=== PATIENT | female | born 1995 | race Caucasian/White ===

== ENCOUNTER 2017-11-29 17:44 | Emergency (ER) | payer BC ==
--- NOTE | 2017-11-29 19:16 | RAD ---
Indication: Cough, fever. 2 views of the chest including dual energy PA views demonstrate no mediastinal shift. Heart is of normal size and configuration. Lung dejesus appear clear. When compared to previous exam of September 27, 2015 right lower lobe pneumonia is no longer present. IMPRESSION: NO ACTIVE CARDIOPULMONARY DISEASE IS NOTED.
--- NOTE | 2017-11-29 19:38 | UC ---
Antonio Allen Tecjoon, scribed for Miko Richter MD on 11/29/17 at 1818 . General HPI - HPI Summary HPI Summary: This patient is a 21 year old female presenting to [facility] [place] accompanied by male learning support teacher with a chief complaint of pneumonia-like symptoms since 2-3 days ago. Patient states that she has been feeling weak and has chest pressure. The illness was sudden onset. The pain is described as achy. The pain is rated 7 /10 in severity. Symptoms aggravated by nothing. Symptoms alleviated by nothing. Patient additionally reports headache, weakness, fatigue, sore throat, nausea, subjective fever, chills, productive cough. Patient denies wheezing. - History of Current Complaint Chief Complaint: UCGeneralIllness Stated Complaint: COLD Time Seen by Provider: 11/29/17 18:04 Hx Obtained From: Patient Hx Last Menstrual Period: on control Onset/Duration: Sudden Onset, Lasting Days - 2-3, Still Present Timing: Constant Current Severity: Moderate Pain Intensity: 7 - /10 Pain Location at: chest Character: pressure Aggravating: nothing Alleviating: nothing Associated Signs & Symptoms: Positive: Other. Negative: Wheezing - Allergy/Home Medications Allergies/Adverse Reactions: Allergies Allergy/AdvReac Type Severity Reaction Status Date / Time Penicillins [PCN] Allergy Severe Hives Verified 03/21/16 18:42 Home Medications: Home Medications Acetaminophen [Tylenol] 650 11/29/17 [History] Pseudoephedrine-Guaifenesin [Mucinex D 60-600 mg] 11/29/17 [History] PMH/Surg Hx/FS Hx/Imm Hx Previously Healthy: Yes Endocrine History: Other Other Endocrine History: negative: diabetes Cardiovascular History: Other Other Cardiovascular History: negative: hypertension - Surgical History Surgical History: Yes Surgery Procedure, Year, and Place: TONISILLECTOMY. CHOLECYSTECTOMY - Family History Known Family History: Positive: Hypertension - Social History Occupation: Student Alcohol Use: None Substance Use Type: None Smoking Status (MU): Never Smoked Tobacco Review of Systems Constitutional: Fever, Chills, Fatigue ENT: Sore Throat Respiratory: Negative - wheezing, Cough Gastrointestinal: Nausea Neurological: Headache, Weakness All Other Systems Reviewed And Are Negative: Yes Physical Exam Triage Information Reviewed: Yes Vital Signs: Initial Vital Signs Temp 98.0 F 11/29/17 17:50 Pulse 86 11/29/17 17:50 Resp 16 11/29/17 17:50 BP 141/81 11/29/17 17:50 Pulse Ox 100 11/29/17 17:50 - Additional Comments General: Mildly ill appearing, no pain distress Skin: warm, color reflects adequate perfusion, dry Head: normal Eyes: EOMI, GASPER ENT: Positive rhinorrhea, Posterior pharynx erythematous. Positive anterior cervical lymphadenopathy. Neck: supple, nontender Respiratory: CTA, breath sounds present Cardiovascular: RRR Abdomen: soft, nontender Bowel: present Musculoskeletal: normal, strength/ROM intact Neurological: normal, sensory/motor intact, A&O x3 Psychological: affect/mood appropriate Diagnostics - Radiology CXR Xray Interpretation: No Acute Changes - IMPRESSION: NO ACTIVE CARDIOPULMONARY DISEASE IS NOTED. ED physician has reviewed this radiology report. Radiology Interpretation Completed By: Radiologist Course/Dx - Course Course Of Treatment: BP noted and advised to follow up with PCP. REVIEWED RESULTS WITH PATIENT. DISCUSSED VIRAL VERSES BACTERIAL INFECTION. RX ZPAC TO BE USED IF SX PERSIST OR WORSEN. F/U PMD; RETURN IF WORSE. - Differential Dx - Multi-Symptom Provider Diagnoses: BRONCHITIS Discharge - Discharge Plan Condition: Stable Disposition: HOME Prescriptions: Azithromycin TAB* [Zithromax TAB (Z-NELL) 250 mg #6 tabs] 2 tab PO .TODAY, THEN 1 DAILY #1 nell Patient Education Materials: Acute Bronchitis (ED) Referrals: [facility] [facility] [Outside] No Primary Care Phys,NOPCP [Primary Care Provider] - Additional Instructions: Your blood pressure was elevated during todays visit; please follow up with your primary care provider within a week for further evaluation FOLLOW UP WITH YOUR DOCTOR. GET RECHECKED FOR ANY WORSENING OF YOUR CONDITION OR QUESTIONS OR CONCERNS. The documentation as recorded by the Antonio clemens Tecjoon accurately reflects the service I personally performed and the decisions made by me, Miko Richter MD.
[2017-11-29 19:42] VITALS: BP 131/85
== END 2017-11-29 19:48 | disposition home or self-care (01) ==
LOC: UCEAST 17:44
DX: J40 Bronchitis, not specified as acute or chronic (principal)
CPT/HCPCS: 71046; 87502; 99212; G0463

== ENCOUNTER 2017-12-23 08:38 | Emergency (ER) | payer BC ==
[2017-12-23 08:51] VITALS: BP 137/80
--- NOTE | 2017-12-23 09:43 | UC ---
Joao Allen Angela, scribed for Mary Leroy MD on 12/23/17 at 0928 . FLU HPI - HPI Summary HPI Summary: This pt is a 21 y/o female presenting to [facility] c/o productive cough x2 days. Associated symptoms include rhinorrhea, nausea, diarrhea, body aches. Pt reports yesterday morning she had a fever (max temp of 100.4 F). Pt has taken Mucinex cold and flu for the fever with relief, last time she took it was at 07: 30 this morning. Denies vomiting, rash. LMP: 3 weeks ago. + sick contacts Patients medication reviewed this visit. - History of Current Complaint Chief Complaint: UCGeneralIllness Stated Complaint: FLU SYMPTOMS Hx Obtained From: Patient Hx Last Menstrual Period: 12/02/17 Onset/Duration: Lasting Days - 1, Still Present Severity Currently: Moderate Pain Intensity: 6 Pain Scale Used: 0-10 Numeric Associated Signs & Symptoms: Positive: Fever, T Max - 100.4 F, Myalgia, Cough, Nasal Congestion, Diarrhea - Allergy/Home Medications Allergies/Adverse Reactions: Allergies Allergy/AdvReac Type Severity Reaction Status Date / Time MS Penicillins [PCN] Allergy Severe Hives Verified 12/23/17 08:51 PMH/Surg Hx/FS Hx/Imm Hx Previously Healthy: Yes Other Endocrine History: DENIES: diabetes Other Cardiovascular History: DENIES: HTN - Surgical History Surgical History: Yes Surgery Procedure, Year, and Place: TONISILLECTOMY. CHOLECYSTECTOMY - Family History Known Family History: Positive: Hypertension, Diabetes - cousin Family History: Grandfather: [place] - Social History Occupation: Employed Full-time Lives: With Family Alcohol Use: Rare Substance Use Type: None Smoking Status (MU): Never Smoked Tobacco Review of Systems Constitutional: Fever, Chills Skin: Negative Eyes: Negative ENT: Nasal Discharge, Sinus Congestion Respiratory: Cough Cardiovascular: Negative Gastrointestinal: Diarrhea, Nausea, Other - NEG: vomiting Genitourinary: Negative Motor: Negative Neurovascular: Negative Musculoskeletal: Myalgia Neurological: Negative Psychological: Negative Is Patient Immunocompromised?: No All Other Systems Reviewed And Are Negative: Yes Physical Exam Triage Information Reviewed: Yes Appearance: Well-Appearing, No Pain Distress, Well-Nourished Vital Signs: Initial Vital Signs Temp 96.6 F 12/23/17 08:46 Pulse 103 12/23/17 08:46 Resp 16 12/23/17 08:46 BP 137/80 12/23/17 08:46 Pulse Ox 99 12/23/17 08:46 Eye Exam: Normal Eyes: Positive: Conjunctiva Clear ENT Exam: Normal ENT: Positive: Normal ENT inspection, Hearing grossly normal, Pharynx normal, Pharyngeal erythema, Other - turbinates inflammed and boggy + PND No exudate no erythema uvula midline Dental Exam: Normal Neck exam: Normal Neck: Positive: Supple, Nontender, No Lymphadenopathy Respiratory Exam: Normal Respiratory: Positive: Chest non-tender, Lungs clear, Normal breath sounds, No respiratory distress, No accessory muscle use, Other: - intermittent cough Cardiovascular Exam: Normal Cardiovascular: Positive: RRR, No Murmur Abdominal Exam: Normal Abdomen Description: Positive: Nontender, No Organomegaly, Soft Bowel Sounds: Positive: Present Musculoskeletal Exam: Normal Neurological Exam: Normal Neurological: Positive: Alert Psychological Exam: Normal Skin Exam: Normal Flu Course/Dx - Course Course Of Treatment: pt with fever, congestion, body aches x 2 days. Pt with + flu here. hydrate. motrin/apap. secretion precaution. return precaution - Differential Dx/Diagnosis Provider Diagnoses: influenza Discharge - Discharge Plan Condition: Stable Disposition: HOME Prescriptions: Oseltamivir Phosphate [Tamiflu] 75 mg PO BID #10 capsule Patient Education Materials: Influenza (ED) Referrals: No Primary Care Phys,NOPCP [Primary Care Provider] - Additional Instructions: - Stay well hydrated. Drink plenty of non-alcoholic, non-caffinated beverages. - Alternate ibuprofen (Advil, Motrin) 600mg and Tylenol every 3 hours for pain or fever. Take with food. Do NOT take for more than 4-5 days. - These infections are spread by secretions - do NOT share eating or drinking utensils - clean items you share with other people such as cell phones, computer mouse, TV remote, computer tablets, etc. After you have taken Tamiflu , change your toothbrush and your pillowcase. - get plenty of restful sleep - humidify the air in the room where you sleep - boil water, run a hot steam shower, vaporizer, cups of water by heat register - okay to take over the counter decongestant and cough medication - contact your doctor or return with questions or concerns. The documentation as recorded by the Joao clemens Angela accurately reflects the service I personally performed and the decisions made by , Mary Leroy MD.
== END 2017-12-23 09:44 | disposition home or self-care (01) ==
LOC: UCEAST 08:38
DX: J10.1 Influenza due to other identified influenza virus with other respiratory manifestations (principal)
CPT/HCPCS: 87502; 99212; G0463